=== PATIENT | male | born 2000 | race Caucasian/White ===

== ENCOUNTER 2020-05-08 15:17 | Emergency (ER) | payer OTHER, SELFPAY ==
[2020-05-08 15:25] VITALS: BP 153/74; PULSE 94; RESP 18; TEMP 36.7; O2SAT 100
--- NOTE | 2020-05-08 15:45 | W.ED.GENAD ---
Discharge Plan Disposition Patient Disposition: HOME Condition: Good Discharge Details Chief Complaint: Laceration Clinical Impression: Laceration of scalp Primary Care Provider: Unknown,Unknown ED Provider: Issac Keller Home Meds and New Rx's Prescriptions: No Action naproxen sodium [Aleve] 220 mg Tablet 220 mg PO Q12H PRNRF: 0 Discharge Instructions Instructions: Laceration (ED), Staple Care (ED) Additional Instructions: Please return the next 7 days to have your leobardo removed. Please leave the dressing on for 24 hours, then you may remove and begin cleaning the wound at least twice a day with soap and water. Continue to apply antibiotic ointment. Do not directly soak the area. Watch for any signs of infection and return if any increasing redness, swelling, pain, drainage. If you notice any worsening of your symptoms, or any new symptoms such as vomiting, diarrhea, fever, chills, shortness of breath, chest pain, numbness, weakness, or fainting , please return immediately to the emergency department for reevaluation. Please follow up with your primary care provider as soon as possible for reassessment and reevaluation. As always, it was a pleasure participating in your medical care today. Medical Decision Making 19-year-old male with no significant past medical history whose tetanus is not up-to-date presents today for evaluation of scalp laceration. Patient states that he was working outside earlier today hit his head on the bucket of an excavator, had no loss of consciousness. Rinse it with water and continue to work went home noticed that he was bleeding and came in for further evaluation as family recommended he may need leobardo. He denies any severe headache, vision changes numbness tingling weakness dizziness. He denies any other complaints at this time. No other modifying factors. Patient has a stellate scalp laceration, each wing is 1 cm, 2 leobardo were placed without complication, patient tolerated this well. Tetanus is updated. Wound was cleared extensively with chlorhexidine and normal saline prior to this. Patient tolerated all well. He will be discharged home. No neurologic deficit suggestive of intracranial abnormality, symptoms inconsistent with cranial fracture requiring imaging. I have extensively reviewed the treatment plan and discharge instructions with the patient. I have addressed all patient concerns at this time. The patient was made aware of what symptoms to monitor for that would warrant a return to the emergency department. Discussed the plan with the patient, they demonstrate verbal understanding and agreement with our assessment and plan at this time. HPI General Date/Time Provider Initiated Documentation: 05/08/20 15:29. HPI Narrative: 19-year-old male with no significant past medical history whose tetanus is not up-to-date presents today for evaluation of scalp laceration. Patient states that he was working outside earlier today hit his head on the bucket of an excavator, had no loss of consciousness. Rinse it with water and continue to work went home noticed that he was bleeding and came in for further evaluation as family recommended he may need leobardo. He denies any severe headache, vision changes numbness tingling weakness dizziness. He denies any other complaints at this time. No other modifying factors. Related Data Home Medications Medication Instructions Recorded Confirmed naproxen sodium [Aleve] 220 mg PO Q12H PRN 05/08/20 05/08/20 Allergies Allergy/AdvReac Type Severity Reaction Status Date / Time No Known Allergies Allergy Unverified 05/08/20 15:28 General Stated Complaint: Laceration SORIN: 4 Review of Systems All systems reviewed & are unremarkable except as noted in HPI and below [facility] Social History Smoking/Tobacco Use Status: Never Alcohol Intake: current Alcohol Intake frequency: 0-2 drinks per day Alcohol type: beer Drug use: Daily Substance use type: marijuana Do you feel safe at home: Yes Do you feel safe in your relationship?: Yes Exam Narrative Exam Narrative: 1.Const: Well-nourished, Well-developed, appearing stated age 2.Eyes: PERRL, no conjunctival injection, and symmetrical lids. 3.ENT: Atraumatic external nose and ears. Moist MM. Neck: Symmetric, trachea midline, No thyromegaly. There is no evidence of raccoon eyes, estrada sign, CSF rhinorrhea, mastoid tenderness, cranial crepitus, hemotympanum, exophthalmos, or hyphema. Patient demonstrates intact dentition with no signs of tooth avulsion or fracture, no signs of jaw deformity, no evidence of a LeFort's fracture, with an intact palate, nose and orbital region. There is no evidence of a nasal septal hematoma. No proptosis. Jaw closes symmetrically. Airway is clear. 4.CVS: +S1/S2, No murmurs or gallops. Peripheral pulses 2+ and equal in all extremities. Brisk capillary refill in all extremities. 5.RESP: Unlabored respiratory effort. Clear to auscultation bilaterally. No wheezes rales or rhonchi 6.GI: Soft, Nontender/Nondistended, No hepatosplenomegaly. No guarding or rebound. 7.MSK: Normocephalic/Atraumatic, Extremities w/o deformity or ttp No cyanosis or clubbing, Normal movement of all extremities. No midline cervical thoracic lumbar spine tenderness 8.Skin: Small chevron shaped laceration to the top of his scalp, each wing is roughly half a centimeter in length. Superficial, no depression in the skin or signs of skull fracture. No Carver disruption present. 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 Sensation grossly intact, no focal neurologic deficits. 10.Psych: (AAO) x3. Appropriate mood and affect Course Vital Signs Vital signs: Vital Signs Temperature 36.7 C 05/08/20 15:25 Pulse 94 H 05/08/20 15:25 Respiratory Rate 18 05/08/20 15:25 Blood Pressure 153/74 H 05/08/20 15:25 Pulse Oximetry 100 05/08/20 15:25 Temperature 36.7 C 05/08/20 15:25 Temperature Source Oral 05/08/20 15:25 Pulse 94 H 05/08/20 15:25 Respiratory Rate 18 05/08/20 15:25 Respiratory Effort Non-Labored 05/08/20 15:29 Blood Pressure 153/74 H 05/08/20 15:25 Blood Pressure Position Sitting 05/08/20 15:25 Pulse Oximetry 100 05/08/20 15:25 Oxygen Delivery Method Room Air 05/08/20 15:25 Oxygen Flow Rate 0 05/08/20 15:25 Pain Level 0 05/08/20 15:25 Procedures Laceration Laceration 1: Site: scalp Size (cm): 2 Description: stellate Depth: simple, single layer Local Anesthetic: Lidocaine 1% Amount of anesthesia used (mL): 3 Pre-repair: wound explored, irrigated extensively and deep structures intact Skin layer closed with: other (Leobardo x2) Number of sutures: 2
[2020-05-08 16:08] VITALS: BP 109/57; PULSE 80; RESP 18; TEMP 37.3; O2SAT 100
== END 2020-05-08 16:40 | disposition home or self-care (01) ==
PROVIDERS: Emergency Provider Student in an Organized Health Care Education/Training Program
DX: S09.90XA Unspecified injury of head, initial encounter (principal); S01.01XA Laceration without foreign body of scalp, initial encounter; W31.89XA Contact with other specified machinery, initial encounter; Y99.0 Civilian activity done for income or pay
CPT/HCPCS: 12001; 90471

== ENCOUNTER 2020-05-15 16:44 | Emergency (ER) | payer OTHER, SELFPAY ==
[2020-05-15 16:49] VITALS: BP 122/60; PULSE 90; RESP 16; TEMP 37.1; O2SAT 96
--- NOTE | 2020-05-15 16:52 | W.ED.GENAD ---
Discharge Plan Disposition Patient Disposition: HOME Discharge Details Chief Complaint: SutureRem Clinical Impression: Visit for suture removal Primary Care Provider: Unknown,Unknown ED Provider: Bart Harrell Home Meds and New Rx's Prescriptions: No Action naproxen sodium [Aleve] 220 mg Tablet 220 mg PO Q12H PRNRF: 0 Discharge Instructions Additional Instructions: Your leobardo were removed today. There is no signs of infection. Carefully wash the area with soap and water. Pat the area dry with a clean towel. Check the area for signs of infection, such as redness, swelling, or pus. Also check that the wound is not coming apart. Protect your wound. Your wound can swell, bleed, or split open if it is stretched or bumped. You may need to wear a bandage that supports your wound until it is completely healed. Please contact your primary care physician to arrange follow-up as needed. Return to the ER for any worsening or new concerning symptoms. Medical Decision Making 19-year-old male here 1 week status post scalp laceration repaired with 2 leobardo seeking wound assessment and staple removal. No signs of infection. Wound appears to be healing quite well. [place] removed by nurse with my direct oversight. Usual and customary discharge instructions provided. HPI General Mode of arrival: ambulatory. Date/Time Provider Initiated Documentation: 05/15/20 16:52. Limitations to Documentation: no limitations. Information obtained by: patient. HPI Narrative: 19-year-old male here for suture removal. Patient notes he was here about a week ago for scalp laceration. Wound was repaired with 2 leobardo. Wound is been healing well with no signs of infection. Related Data Home Medications Medication Instructions Recorded Confirmed naproxen sodium [Aleve] 220 mg PO Q12H PRN 05/08/20 05/08/20 Allergies Allergy/AdvReac Type Severity Reaction Status Date / Time No Known Allergies Allergy Unverified 05/15/20 16:52 General Stated Complaint: SutureRem SORIN: 5 Review of Systems Constitutional Constitutional: Denies fever(s) [facility] Social History Smoking/Tobacco Use Status: Never Alcohol Intake: current Alcohol Intake frequency: 0-2 drinks per day Alcohol type: beer Drug use: Daily Substance use type: marijuana Do you feel safe at home: Yes Do you feel safe in your relationship?: Yes Exam Const General: cooperative and healthy appearing Skin Wounds: wounds noted (Scalp wound healing well, no infection) Course Vital Signs Vital signs: Vital Signs Temperature 37.1 C 05/15/20 16:49 Pulse 90 05/15/20 16:49 Respiratory Rate 16 05/15/20 16:49 Blood Pressure 122/60 05/15/20 16:49 Pulse Oximetry 96 05/15/20 16:49 Temperature 37.1 C 05/15/20 16:49 Temperature Source Skin 05/15/20 16:49 Pulse 90 05/15/20 16:49 Respiratory Rate 16 05/15/20 16:49 Respiratory Effort Non-Labored 05/15/20 16:48 Blood Pressure 122/60 05/15/20 16:49 Blood Pressure Position Sitting 05/15/20 16:49 Pulse Oximetry 96 05/15/20 16:49 Oxygen Delivery Method Room Air 05/15/20 16:49 Oxygen Flow Rate 0 05/15/20 16:49 Pain Level 0 05/15/20 16:49
== END 2020-05-15 17:07 | disposition home or self-care (01) ==
LOC: ER 17:02
PROVIDERS: Emergency Provider Student in an Organized Health Care Education/Training Program
DX: S01.01XD Laceration without foreign body of scalp, subsequent encounter (principal); X58.XXXD Exposure to other specified factors, subsequent encounter; Z48.02 Encounter for removal of sutures